=== PATIENT | male | born 1995 | race Caucasian/White ===

== ENCOUNTER 2019-04-19 09:57 | Outpatient (REF) | payer MEDICAID, SELFPAY ==
[2019-04-19 12:58] LABS: HCT 41.7 % (40.0-50.0); HGB 13.8 g/dL (13.5-17.5); Mean Corp. HGB Concentration 33.1 g/dL (32.0-36.0); Mean Corpuscular Hemoglobin 28.5 pg (27.0-33.0); Mean Corpuscular Volume 86.2 fL (80-95); Mean Platelet Volume 10.6 fL (8.0-11.0); Platelet Count 156 x1000/uL (130-400); RBC 4.84 m/cumm (4.50-6.00); RBC Distribution Width 12.4 % (11.8-14.1)
[2019-04-19 13:21] LABS: ALT 16 U/L (16-63); AST 13 U/L (15-37); Alkaline Phosphatase 72 U/L (46-116); Anion Gap 9.5 mmol/L (3-11); BUN 17 mg/dL (7-18); Bilirubin, Total 0.9 mg/dL (0.2-1.0); CO2 29.5 mmol/L (21.0-32.0); Calcium 8.7 mg/dL (8.5-10.1); Chloride 105 mmol/L (98-107); Glucose 90 mg/dL (74-106); Potassium 4.1 mmol/L (3.5-5.1); Sodium 144 mmol/L (136-145)
== END 2019-04-19 10:17 ==
LOC: NCHCN 09:57
PROVIDERS: PCP Nurse Practitioner Family; Visit Provider Nurse Practitioner Family
DX: Z13.220 Encounter for screening for lipoid disorders (principal)
CPT/HCPCS: 80053; 85027

== ENCOUNTER 2020-02-03 15:35 | Outpatient (REF) | payer MEDICAID, SELFPAY ==
--- NOTE | 2020-02-03 14:50 | SKI_PTH ---
PATIENT: STEPHAN SMITH LOC: [facility] U#:[id number] AGE/SX: 25/M ROOM: RE02/03/[address]: Dejon Liu : 1995 BED: DIS: 02/03/2020 SPEC #: [id number] RECD: 02/03/20 18:15 STATUS: ARABELLA REQ #: [id number] SLIM: 02/03/20 14:[address]: Dejon Liu DEPT: Surgical Specimen RECD BY: Shara Up ENTERED: 02/03/20 18:15 SP TYPE: ALEKSANDRA POPE DR: Lorenzo Foley Tissues: 1 - SKIN BIOPSY(SHAVE/PUNCH) Procedures: SKIN LEVEL 4 Comments: [id number]
== END 2020-02-03 15:55 ==
LOC: NCHCN 15:35
PROVIDERS: PCP Nurse Practitioner Family; Visit Provider Physician Assistant
DX: D22.5 Melanocytic nevi of trunk (principal)
CPT/HCPCS: 88305

== ENCOUNTER 2020-04-20 17:48 | Outpatient (REF) | payer MEDICAID, SELFPAY ==
[2020-04-20 19:18] LABS: Calculated LDL 78 mg/dL (<100); Cholesterol 153 mg/dL (<200); HDL Cholesterol 55 mg/dL (40-60); Triglyceride 100 mg/dL (<150)
[2020-04-22 11:22] LABS: Hepatitis C Ab w Rflx HCV PCR Negative (Negative)
[2020-04-22 12:38] LABS: HIV-1/2 Ag & Ab Screen Negative (Negative)
== END 2020-04-20 18:08 ==
LOC: NCHCN 17:48
PROVIDERS: PCP Nurse Practitioner Family; Visit Provider Nurse Practitioner Family
DX: Z13.220 Encounter for screening for lipoid disorders (principal); Z11.59 Encounter for screening for other viral diseases; Z11.4 Encounter for screening for human immunodeficiency virus [HIV]
CPT/HCPCS: 80061; 86803; 87389